=== PATIENT | female | born 1980 | race Caucasian/White ===

== ENCOUNTER 2016-06-27 12:21 | Emergency (ER) | payer BC ==
[~2016-06-27] VITALS: Ht 170.2 cm; Wt 59.0 kg
[2016-06-27] MEDS ORDERED: ZOLOFT25 MG ORAL (12:24)
[2016-06-27] MEDS ORDERED: ATIVAN0.5 MG ORAL (12:24)
[2016-06-27 12:52] VITALS: BP 142/73
[2016-06-27] MEDS ORDERED: LORazepam Inj 2mg/ml 1ml IV ONE (13:00)
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
[2016-06-27 14:18] LABS: BASOPHILS % (AUTO) 0.7 % (0.0-2.0); EOSINOPHILS % (AUTO) 4.6 % (0.0-3.0); LYMPHOCYTES % (AUTO) 24.4 % (20.0-45.0); MEAN CORPUSCULAR HEMOGLOBIN 31.3 PG (27.0-31.0); MEAN CORPUSCULAR HGB CONC 33.2 G/DL (32.0-36.0); MEAN CORPUSCULAR VOLUME 94 FL (80-99); NEUTROPHILS % (AUTO) 59.3 % (45.0-75.0); PLATELET COUNT 328 K/UL (150-450); RED BLOOD COUNT 3.88 M/UL (4.20-5.40); RED CELL DISTRIBUTION WIDTH 12.4 % (11.6-14.8); WHITE BLOOD COUNT 15.2 K/UL (4.8-10.8)
[2016-06-27 14:20] VITALS: BP 113/67
[2016-06-27 14:22] LABS: KETONES,URINE NEGATIVE (NEGATIVE); LEUKOCYTE ESTERASE ,URINE NEGATIVE (NEGATIVE); NITRITE,URINE NEGATIVE (NEGATIVE); PH,URINE 5 (4.5-8.0); PROTEIN,URINE 1+ (NEGATIVE); UROBILINOGEN,URINE NORMAL MG/DL (0.0-1.0)
[2016-06-27 14:23] LABS: APPEARANCE,URINE CLEAR
[2016-06-27 14:27] LABS: BACTERIA,URINE OCCASIONAL /HPF; SQUAMOUS EPITHELIAL CELL,UR OCCASIONAL /LPF (NONE/OCC)
[2016-06-27 14:35] LABS: ACETAMINOPHEN < 10 ug/mL (10-30); ALANINE AMINOTRANSFERASE 107 U/L (3-33); ALBUMIN/GLOBULIN RATIO 1.5 (1.0-2.7); ALCOHOL < 10 mg/dL; ANION GAP 18 (5-15); ASPARTATE AMINO TRANSFERASE 260 U/L (5-40); CALCIUM 9.1 mg/dL (8.6-10.2); CARBON DIOXIDE 22 mEQ/L (20-30); CHLORIDE 102 mEQ/L (98-107); CREATININE 0.7 mg/dL (0.5-0.9); GLOMERULAR FILTRATION RATE > 60 mL/min (>60); HEMOLYSIS 1; POTASSIUM 3.5 mEQ/L (3.4-4.9); SODIUM 142 mEQ/L (135-145); TOTAL PROTEIN 6.7 g/dL (6.6-8.7)
[2016-06-27 14:56] LABS: TROPONIN I < 0.30 ng/mL (<=0.30)
[2016-06-27 15:07] VITALS: BP 109/75
[2016-06-27 18:24] VITALS: BP 109/60
[2016-06-27 19:15] VITALS: BP 104/64
[2016-06-27] MEDS ORDERED: Cephalexin 500mg cap ORAL ONE (19:45)
[2016-06-27 20:08] VITALS: BP 104/64
--- NOTE | 2016-06-29 10:06 | Cardiology Report ---
APPROVED REPORT EKG Measurement Heart [id number] Normal sinus rhythm Possible Left atrial enlargement Nonspecific T wave abnormality Abnormal ECG
== END 2016-06-27 20:08 | disposition short-term general hospital (02) ==
LOC: EDBD 12:21 → EMR 13:32
DX: F91.9 Conduct disorder, unspecified (principal); F14.10 Cocaine abuse, uncomplicated; Z86.59 Personal history of other mental and behavioral disorders
CPT/HCPCS: 36415; 80053; 80300; 81003; 81025; 84484; 85025; 93005; 99285; G0480; 80329